=== PATIENT | female | born 1995 | race Caucasian/White ===

== ENCOUNTER → 2017-04-11 | Outpatient (CLI) | payer BC ==
[2017-04-13 11:37] LABS: EBV EARLY ANTIGEN IGG Negative (()); EBV EARLY IGG QUANTITATIVE 5.5 U/mL (<9.0); EBV NUCLEAR ANTIGEN IGG Positive (())
[2017-04-13 12:55] LABS: EBV CAPSID IGG QUANTITATIVE >750.0 U/mL (<18.0); EBV CAPSID IGM QUANTITATIVE 26.8 U/mL (<36.0); EBV IGM AB Negative (()); EPSTEIN-BARR VIRUS VCA-IgG Positive (())
== END ==
LOC: COL.LAB 10:35
PROVIDERS: Student in an Organized Health Care Education/Training Program
DX: J35.1 Hypertrophy of tonsils (principal)